=== PATIENT | male | born 1950 | race Caucasian/White ===

== ENCOUNTER 2018-06-07 19:12 | Emergency (ER) | payer OTHER, BC ==
[~2018-06-07] VITALS: Ht 182.9 cm; Wt 106.7 kg
[2018-06-07 19:15] VITALS: Ht 182.9 cm; Wt 106.7 kg
--- NOTE | 2018-06-07 20:35 | DIAGNOSTIC IMAGING REPORT ---
RIGHT KNEE 3 VIEWS CLINICAL HISTORY: Right knee pain. FINDINGS: AP, crosstable lateral, and sunrise views of the right knee are obtained. No prior studies are available for comparison at the time of dictation. The skeletal structures are well mineralized. No fracture is seen. There is mild degenerative narrowing in the medial and patellofemoral compartments. Small marginal osteophytes are noted. There are patellar enthesophytes and degenerative beaking of the tibial spine. Chondrocalcinosis is noted in the medial and lateral compartments. There is a joint effusion. Mild soft tissue swelling is present around the knee. IMPRESSION: 1. Soft tissue swelling and joint effusion with no acute osseous abnormality identified. 2. Degenerative change and chondrocalcinosis as above. Electronically signed by: Shekhar Conteh M.D. 06/07/2018 8:34 PM Dictated Date/Time: 06/07/2018 8:33 PM
[2018-06-07] MEDS ORDERED: HYDR-5688 PO (20:49)
--- NOTE | 2018-06-07 20:50 | EMERGENCY ROOM VISIT NOTE ---
History First contact with patient: 19:23 Chief Complaint: KNEEPAIN Stated Complaint: PAIN IN RIGHT KNEE History of Present Illness The patient is a 67 year old male who presents to the Emergency Room with complaints of right knee pain. The patient reports that he has had ongoing issues with his right knee for several months. He states that he has occasional pain while walking. He states that yesterday while walking up a hill , he felt something give in his knee and fell. He has had significant pain since that time. He reports the pain is a 6/10 and is worsened with weightbearing or extending the knee fully. He denies any numbness or weakness. There was no direct trauma to the knee. He denies any history of diagnosed problems with that knee, but has had his left meniscus repaired. He denies any fevers, warmth or redness. Review of Systems A complete 6 point review of systems was reviewed with the patient with pertinent positives and negatives as per history of present illness. All else were negative. Past Medical/Surgical History Medical Problems: (1) No significant active problems Social History Smoking Status: Never Smoker Housing Status: lives with family Current/Historical Medications Scheduled PRN Hydrocodone/Acetaminophen 5MG/325MG (Latham 5MG/325MG), 1 TABLET PO Q4H PRN for Pain Physical Exam Vital Signs Date Time Temp Pulse Resp B/P (MAP) Pulse Ox O2 Delivery O2 Flow Rate FiO2 06/07/18 21:10 36.7 54 18 148/82 96 06/07/18 19:15 36.7 54 18 173/79 96 Room Air Physical Exam VITALS: Vitals are noted on the nurse's note and reviewed by myself. Vital signs stable. GENERAL: This is a 67-year-old male, in no acute distress, nondiaphoretic, well- developed well-nourished. SKIN: No erythema or warmth. MUSCULOSKELETAL: There is no significant tenderness to palpation of the right knee. Patient does have full range of motion, although does report subjective pain with extension. NEURO: Patient was alert and oriented to person place and time. Distal sensation intact. Medical Decision & Procedures ER Provider Diagnostic Interpretation: RIGHT KNEE 3 VIEWS CLINICAL HISTORY: Right knee pain. FINDINGS: AP, crosstable lateral, and sunrise views of the right knee are obtained. No prior studies are available for comparison at the time of dictation. The skeletal structures are well mineralized. No fracture is seen. There is mild degenerative narrowing in the medial and patellofemoral compartments. Small marginal osteophytes are noted. There are patellar enthesophytes and degenerative beaking of the tibial spine. Chondrocalcinosis is noted in the medial and lateral compartments. There is a joint effusion. Mild soft tissue swelling is present around the knee. IMPRESSION: 1. Soft tissue swelling and joint effusion with no acute osseous abnormality identified. 2. Degenerative change and chondrocalcinosis as above. Medications Administered Medications (Trade) Dose Ordered Sig/Janessa Route Start Time Stop Time Status Last Admin Dose Admin Acetaminophen/ Hydrocodone Bitart (Latham 5/325mg Home Pack) 1 homepack UD ONCE PO 06/07/18 21:00 06/07/18 21:01 DC 06/07/18 21:03 1 HOMEPACK Medical Decision Differential diagnosis includes fracture, contusion, meniscal injury, ligamentous injury, infection, among others. The patient was evaluated as above. X-ray of the right knee was obtained and read by radiology with no acute findings. Patient was placed in an Gabriel wrap. He was offered crutches but declined. He was given a home pack and prescription of Latham. He will follow-up with his own orthopedist when he returns home. He verbalized understanding of my assessment and treatment plan and was discharged home in good condition. Medication Reconcilliation Current Medication List: was personally reviewed by me Blood Pressure Screening Patient's blood pressure: Elevated blood pressure Blood pressure disposition: Elevated BP felt to be situational Impression Primary Impression: Right knee pain Departure Information Dispostion Home / Self-Care Condition GOOD Prescriptions Hydrocodone/Acetaminophen 5MG/325MG (L[place] 5MG/325MG) Tab 1 TABLET PO Q4H Y for Pain, #12 TAB For Initial Treatment Prov: Milady Ralph .SAMMY 06/07/18 Referrals No Doctor, Assigned (PCP) Patient Instructions My [facility] Additional Instructions You have been treated in the Emergency Department for Knee Pain. You have been prescribed Latham to be used for pain control. This is a narcotic medication. You cannot drive or consume alcohol while on this medicine. This medicine should only be used for pain that cannot be controlled with over-the- counter pain medicines. For pain control, you can use the following czht-xol-kareypa medicines (if >12 yo): - Regular strength (325mg/tab) Tylenol (acetaminophen) 2 tabs every 4-6 hours as needed. Do not exceed 12 tablets in a 24 hour period. Avoid taking more than 4 grams (4000 mg) of Tylenol per day. This includes any other sources of acetaminophen you may take on a regular basis. - Regular strength (200 mg/tab) Advil (ibuprofen) 1-2 tabs every 4-6 hours as needed. Do not exceed a dose of 3200 mg per day. If this is a recent injury (<24 hrs), ice can be applied to the area of pain for the first 3 days to help decrease pain and inflammation. Ice massages can be performed by freezing water in a paper cup, peeling back the cup to expose the ice and then massaging over the affected area. Wear the Gabriel wrap when up and walking around. Elevate your knee to help reduce swelling. Follow-up with your own orthopedist regarding your knee pain. Return to the Emergency Department if your current symptoms worsen despite treatment course outlined above. Problem Qualifiers Primary Impression: Right knee pain Chronicity: acute Qualified Codes: M25.561 - Pain in right knee
[2018-06-07] MEDS ORDERED: NORCO 5/325MG HOME PACK PO ONE (21:00)
[2018-06-07 21:10] VITALS: BP 148/82; PULSE 54; TEMP 36.7; O2SAT 96
== END 2018-06-07 21:12 | disposition home or self-care (01) ==
LOC: C.EDB 19:14 → C.EDD 21:12
DX: M25.561 Pain in right knee (principal); W19.XXXA Unspecified fall, initial encounter; R03.0 Elevated blood-pressure reading, without diagnosis of hypertension